=== PATIENT | female | born 1950 | race African-American/Black ===

== ENCOUNTER 2023-06-07 21:08 | Emergency (ER) | payer MEDICARE ==
[~2023-06-07] VITALS: Ht 165.1 cm; Wt 68.0 kg
[2023-06-07 21:19] VITALS: BP_SYST 160; RESP 20; TEMP 96.7; O2SAT 98
[2023-06-07] MEDS ORDERED: ACETAMINOPHEN 500 MG TABLET PO ONE (22:30)
[2023-06-08] MEDS ORDERED: NACL 0.9% 1,000 ML IV ONE
[2023-06-08] MEDS ORDERED: PROPOFOL 200MG/ 20ML VIAL (DIPRIVAN) IV ONE ×2 (01:00)
[2023-06-08 02:03] VITALS: PULSE 83; RESP 18; O2SAT 97
[2023-06-08 02:06] VITALS: BP_SYST 127; TEMP 96.7
== END 2023-06-08 02:06 | disposition home or self-care (01) ==
LOC: SED 21:08
DX: S52.352A Displaced comminuted fracture of shaft of radius, left arm, initial encounter for closed fracture (principal); S93.402A Sprain of unspecified ligament of left ankle, initial encounter; S09.90XA Unspecified injury of head, initial encounter; Z79.899 Other long term (current) drug therapy; W01.0XXA Fall on same level from slipping, tripping and stumbling without subsequent striking against object, initial encounter; Y93.89 Activity, other specified; Y92.89 Other specified places as the place of occurrence of the external cause; Y99.8 Other external cause status
CPT/HCPCS: 25605; 73110; 73610; 99152; 99285; 73100; 96360; J2704; J7030